=== PATIENT | female | born 1980 | race Caucasian/White ===

== ENCOUNTER 2021-09-22 13:44 | Emergency (ER) | payer OTHER, MEDICAID ==
[~2021-09-22] VITALS: Ht 160 cm; Wt 77.0 kg
[2021-09-22 13:57] VITALS: BP 102/71
[2021-09-22] MEDS ORDERED: HYDR30CR80 TP (14:34)
[2021-09-22] MEDS ORDERED: PSYL575P22 MT (14:41)
== END 2021-09-22 15:02 | disposition home or self-care (01) ==
LOC: ER 13:44
DX: K64.4 Residual hemorrhoidal skin tags (principal)
CPT/HCPCS: 99283